=== PATIENT | male | born 1965 | race African-American/Black ===

== ENCOUNTER 2020-08-16 16:13 | Emergency (ER) | payer OTHER ==
[~2020-08-16] VITALS: Ht 170.2 cm; Wt 81.6 kg
[2020-08-16 16:14] VITALS: BP 115/76
== END 2020-08-16 19:11 | disposition home or self-care (01) ==
LOC: ER 16:13
DX: M71.22 Synovial cyst of popliteal space [Baker], left knee (principal)
CPT/HCPCS: 93971

== ENCOUNTER 2021-05-12 16:23 | Emergency (ER) | payer OTHER ==
[~2021-05-12] VITALS: Ht 175.3 cm; Wt 83.9 kg
[2021-05-12] MEDS ORDERED: ACETAMINOPHEN 500 MG TAB PO ONE (20:00)
[2021-05-12 22:00] VITALS: BP 122/71
== END 2021-05-12 22:21 | disposition home or self-care (01) ==
LOC: ER 16:23
DX: S89.92XA Unspecified injury of left lower leg, initial encounter (principal); V89.2XXA Person injured in unspecified motor-vehicle accident, traffic, initial encounter; Y93.89 Activity, other specified; Y92.89 Other specified places as the place of occurrence of the external cause; Y99.8 Other external cause status
CPT/HCPCS: 73590